=== PATIENT | female | born 1995 | race African-American/Black ===

== ENCOUNTER 2025-05-24 13:32 | Outpatient (AMB) | payer OTHER, SELFPAY ==
--- NOTE | 2025-05-24 13:52 | MHC.PC.OV ---
Vital Signs 05/24/25 14:09 Height 5 ft 6 in Weight 151 lb 4 oz BMI 24.4 BP 106/60 Blood Pressure Location Rt brachial Position Sitting Respiration 15 Pulse 97 Pulse Source Pulse Oximeter Temp 98.5 F Temp Source Temporal Artery Scan Pulse Oximetry (%) 99 Oxygen Delivery Method Room Air Intake Visit Reasons: CPE Intake Note: Mavis presents in the office today to establish care. Business Manager Required: No Allergies No Known Allergies Allergy (Verified 05/24/25 14:01) Tobacco use date assessed: 05/24/25 Dental Screening Dental Screen Date: 05/24/25 Did you have a dental visit in the last 12 months?: No Did you have a dental problem in the last 6 months where you did not have access to dental care?: No Was dental information given to patient?: Patient declined HPI HPI Comments History of Present Illness Details This is a 30-year-old female with a past medical history of autism spectrum disorder presenting to establish care. The patient does not recall who she last saw for primary care. 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 She is agreeable to having a physical exam today. Her only concern is that she noticed a lump on the right side of her neck a couple of days ago. She has no other symptoms associated with this and has been feeling well. She enjoys writing and reading. She went to [employer]. She lives with her mother. She was previously evaluated by a psychiatrist for autism. SURYA is positive, but she denies issues with anxiety and is not seeking treatment right now. Denies depression. She is overdue for eye and dental exams which I recommended. She also reports that she has never seen Gynecology for an initial exam so I have referred her to [facility]. She declines tetanus and influenza vaccines. Declines screening for STIs-denies being sexually active. ROS: Constitutional: No unexplained weight loss, fever, chills, fatigue or night sweats. Eyes: No vision changes, blurry vision, double vision, eye pain, eye redness, eye discharge. ENT: No hearing loss, sneezing, congestion, runny nose or sore throat. Respiratory: No shortness of breath, cough or sputum production. Cardiovascular: No chest pain, chest pressure or chest discomfort. No palpitations or pedal edema. Gastrointestinal: No anorexia, nausea, vomiting or diarrhea. No abdominal pain or blood in stool. Genitourinary: No dysuria, hematuria, urinary frequency. Neurologic: No headache, dizziness, syncope, unilateral weakness, ataxia, numbness or tingling in the extremities. Musculoskeletal: No muscle pain, back pain, joint pain or swelling. Hematologic/Lymphatics: No bleeding or bruising. Skin: No rash or itching. Endocrine: No cold or heat intolerance. No polyuria or polydipsia. Psychiatric: No SI/HI. see HPI. Physical exam: Constitutional: Alert, in no distress. Head: Normocephalic. Eyes: Pupils are equal, round and reactive to light. Extraocular muscles intact. Ear, Nose and Throat: Canals clear. TMs normal. Normal nasal mucosa. No nasal discharge. No oral lesions. Neck: Supple, Full range of motion. pea sized nontender mobile cervical lymph node on the right side. No palpable thyroid masses. Respiratory: Clear to auscultation. Cardiovascular: S1 S2 regular. No murmurs. . Gastrointestinal: Abdomen soft, non-tender, non-distended. Normal bowel sounds. No palpable masses. Neurologic: No focal neurological deficits. Symmetric patellar reflexes. Moves all extremities spontaneously. Skin: No rashes Musculoskeletal: No gross deformities. Normal range of motion. Extremities: Warm and well perfused. No clubbing, cyanosis or edema. Psychiatric: Wears headphones during the visit. Eye contact not always maintained during speaking. Speech is clear. [facility] Medical History (Updated 05/24/25 @ 15:20 by MOSES Li) Autism spectrum disorder Enlarged lymph node in neck Screening for cardiovascular condition Cold sore Routine physical examination Food poisoning Family History (Updated 05/24/25 @ 14:31 by MOSES Li) Father Diabetes Maternal Grandmother Diabetes Paternal Grandmother Substance abuse Alcoholism Maternal Aunt Lymphoma Social History (Updated 05/24/25 @ 14:08 by Anu Lopez CMA) Housing: House Alcohol intake: never Patient Tobacco Use Status: Never used Tobacco e-Cigarette/Vaping Use: Never Used Second Hand Smoke Exposure: No service: No Current occupational status: other Current occupational exposures/hazards: No Cognitive needs: No Hearing needs: No Vision needs: Yes Questionnaire PHQ-9 Over the last 2 weeks, how often have you been bothered by any of the following problems? 1. Little interest or pleasure in doing things: not at all 2. Feeling down, depressed, or hopeless: several days 3. Trouble falling or staying asleep, or sleeping too much: several days 4. Feeling tired or having little energy: not at all 5. Poor appetite or overeating: not at all 6. Feeling bad about yourself - or that you are a failure or have let yourself or your family down: not at all 7. Trouble concentrating on things, such as reading the newspaper or watching television: not at all 8. Moving or speaking so slowly that other people could have noticed. Or the opposite - being so fidgety or restless that you have been moving around a lot more than usual: not at all 9. Thoughts that you would be better off or of hurting yourself in some way: several days Total score: 3 Depression Screening Interpretation: Positive Depression Screening Done: Yes 89931 - PHQ-9 Billing: Yes Source: Developed by Drs. Yovanny Gonzalez, Slime Lopez, Seth Ellsworth and colleagues, with an educational hussain from [employer]. Thrive Questionnaire Date Thrive assessed: 05/24/25 I am a: Patient What is your living situation today?: I have a steady place to live Within the past 12 months, did the food you bought not last and you didn't have the money to get more?: Never true Within the past 12 months, did you worry whether your food would run out before you got money to buy more?: Never true Do you have trouble paying for medicines?: No Do you have trouble getting transportation to medical appointments?: Yes Do you have trouble paying your heating and electricity bill?: No Do you have trouble taking care of your child, family member or friend?: I choose not to answer this question Do you have trouble with day-to-day activities such as bathing, preparing meals, shopping, managing finances, etc.?: I choose not to answer this question Are you currently unemployed and looking for a job?: Yes Are you interested in more education?: Yes Please select the resources that you would like help with: None Currently or been in a relationship where the following occur: No concerns reported THRIVE Score: 1 AUDIT C Alcohol Use Questionnaire (AUDIT-C) 1. How often do you have a drink containing alcohol?: Never Total Score: 0 SURYA-7 AMB Questionnaire SURYA-7 Date SURYA - 7 assessed: 05/24/25 Feeling nervous, anxious, or on edge: 1 = Several days Not being able to stop or control worryin = Several days Worrying too much about different things: 3 = Nearly every day Trouble relaxin = Several days Being so restless that it is hard to sit still: 0 = Not at all Becoming easily annoyed or irritable: 1 = Several days Feeling afraid as if something awful might happen: 2 = More than half the days Total SURYA-7 score (0-4 normal; 5-9 mild; 10-14 moderate; 15-21 severe): 9 Source: Developed by Drs. Yovanny Gonzalez, Slime Lopez, Seth Ellsworth and colleagues, with an educational hussani from [employer]. SURYA-7 Assessment Billing SURYA-7 Assessment Tool: SURYA-7 Assessment 46310 Physical exam (Primary Care) Vital Signs: Last Vital Signs Temp 98.5 F 05/24/25 14:09 Pulse 97 05/24/25 14:09 Resp 15 05/24/25 14:09 BP 106/60 05/24/25 14:09 Pulse Ox 99 05/24/25 14:09 Oxygen Delivery Method Room Air 05/24/25 14:09 BMI result Body Mass Index 24.4 Tobacco/Smoking Status: Tobacco use Status Tobacco use date assessed 05/24/25 05/24/25 14:16 Patient Tobacco Use Status Never used Tobacco 05/24/25 14:16 e-Cigarette/Vaping Use Never Used 05/24/25 14:16 PHQ-9: PHQ-9 Score PHQ-9: Total score 3 05/24/25 14:16 Depression Screening Interpretation: Positive Thrive Assessment: Date of Thrive Assessment Date Thrive assessed 05/24/25 05/24/25 14:16 Currently or been in a relationship where the following occur: No concerns reported Coding Level of Care Code New Pt Level 3 (56682) New Pt Prev Care 18-39yr(74849 Diagnoses Routine physical examination Z00.00 Enlarged lymph node in neck R59.0 Autism spectrum disorder F84.0 Additional Codes SURYA-7 Assessment Billing - SURYA-7 Assessment Tool: SURYA-7 Assessment 10180 ([id number]) PHQ-9 - 93712 - PHQ-9 Billing: Yes ([id number]) Assessment & Plan Assessment & Plan (1) Routine physical examination: Code(s): Z00.00 - Encounter for general adult medical examination without abnormal findings Category: Medical (2) Enlarged lymph node in neck: Code(s): R59.0 - Localized enlarged lymph nodes Category: Medical (3) Autism spectrum disorder: Code(s): F84.0 - Autistic disorder Category: Medical Plan Patient is seen today for a routine physical. As part of this visit we reviewed the following issues, which are considered and essential part of preventative health in this age group: - Breast Cancer screening - Annual Pattern Chain Builder exam - Blood pressure screening - Cholesterol screening - Osteoporosis prevention including calcium/vitamin D intake, weight bearing exercise & smoking cessation - Nutritional and exercise counseling - Counseling of injury prevention including fire prevention, smoke alarms and seat belt usage - Screening for depression - Recommendations about immunizations - Recommendation of an eye exam - Screening for substance abuse Patient will have fasting lab work completed and have an ultrasound of the lymph node. She will schedule a follow up in 6 weeks for re-evaluation in to review test results. She will notify the office if she develops other symptoms. Orders: Orders Comprehensive Met. Panel Today B00.1 - Herpesviral vesicular dermatitis, Z00.00 - Encounter for general adult medical examination without abnormal findings, Z13.6 - Encounter for screening for cardiovascular disorders Lipid Panel Today B00.1 - Herpesviral vesicular dermatitis, Z00.00 - Encounter for general adult medical examination without abnormal findings, Z13.6 - Encounter for screening for cardiovascular disorders US soft tiss head and/or neck Today R59.0 - Localized enlarged lymph nodes TSH reflex Free T4 Today R59.0 - Localized enlarged lymph nodes Complete Blood Count Auto Diff Today R59.0 - Localized enlarged lymph nodes Erythrocyte Sedimentation Rate Today R59.0 - Localized enlarged lymph nodes Referrals LEARNING ANALYST Referral Z01.419 - Encounter for gynecological examination (general) (routine) without abnormal findings
[2025-05-24 14:09] VITALS: BP 106/60; PULSE 97; RESP 15; TEMP 36.9; O2SAT 99; BMI 24.4
--- OUTSIDE RECORDS SUMMARY | 2025-05-24 16:51 | XMS_ITS | Encounter Summary ---
Author Organization [facility] Address [address] [address] Phone Care Team Providers Care Registered Nurse Nursery Name Role Phone Pcp, Unknown Primary Care Provider Unavailabl e Encounter Details Date Type Department Care Team (Late st Contact Info) Description 06/14/2024 Procedure Pass [facility], Ct Scan - [address] [address] Social History Tobacco Use Types Packs/Day Years Used Date Smoking Tobacco: Never Assessed Education Answer Date Recorded Are you interested in more education? Not on cheo e 06/14/2024 Are you concerned about learning? Not on file 06/14/2024 No 06/14/2024 No 06/14/2024 Digital Access Answer Date Recorded No 06/14/2024 No 06/14/2024 Reliable internet access at home? Not on file 06/14/2024 Device with a working camera? Not on file Intimate Partner Violence Answer Date R ecorded Are you denied basic needs s uch as food, clothing, or medical care? No 06/14/2024 In the past 12 months have y ou been in a relationship with a person who hurts, threatens, or tries to control you? No 06/14/2024 Are you denied basic needs s uch as food, clothing, or medical care? No 06/14/2024 In the past 12 months have y ou been in a relationship with a person who hurts, threatens, or tries to control you? No 06/14/2024 Comments Unknown Sex and Gender Information Value Date Recorded Sex Assigned at Female 06/14/2024 9:00 AM EST Legal Sex Female 8:49 AM EST Gender Identity Female 06/14/2024 9:00 AM EST Sexual Orientation Don't know 06/14/2024 9: 16 AM EST documented as of this encounter Functional Status * Calculated C-SSRS Risk Score (Lifetime/Recent) Answer Date of Assessment Author No Risk Indicated 06/14/2024 8:58 AM Marissa Nuñez RN * [place] Suicide Severity Rating Scale (Screener/Recent Self-Report) Question Answer Date of Assessment Author 1. Wish to be (Past 1 Month) No 024 8:58 AM Marissa Nuñez RN 2. Non-Specific Active Suici corie Thoughts (Past 1 Month) No 06/14/2024 8:58 AM Marissa Nuñez RN 6. Suicidal Behavior (Lifetime) No 8:58 AM Marissa Nuñez RN documented as of this encounter Plan of Treatment Not on file documented as of this encounter Visit Diagnoses Not on filedocumented in this encounter Care Teams Registered Nurse Nursery Relationship Specialty Start Date End Date Pcp, Unknown PCP - General 06/14/24 documented as of this encounter Additional Source Comments The information contained in this document represents components of the legal health record. It is not the complete legal health record.[facility]
--- OUTSIDE RECORDS SUMMARY | 2025-05-24 16:51 | XMS_ITS | Clinical Summary ---
Author Organization [facility] Address [address] [place] [id number] Phone Care Team Providers Care Hotel And Dining Room Cashier Name Role Phone Pcp, Unknown Primary Care Provider Unavailabl e Allergies No known active allergies Medications No known medications Active Problems Problem Noted Date Diagnosed Date Auditory hallucinations 09/23/2024 Social History Tobacco Use Types Packs/Day Years [...] as food, clothing, or medical care? No 09/23/2024 In the past 12 months have y ou been in a relationship with a person who hurts, threatens, or tries to control you? No 09/23/2024 Are you denied basic needs s uch as food, clothing, or medical care? No 09/23/2024 In the past 12 months have y ou been in a relationship with a person who hurts, threatens, or tries to control you? No 09/23/2024 Comments Unknown Sex and Gender Information Value Date Recorded Sex Assigned at Female 06/14/2024 9:00 AM EST Legal Sex Female 8:49 AM EST Gender Identity Female 06/14/2024 9:00 AM EST Sexual Orientation Don't know 06/14/2024 9: 16 AM EST Last Filed Vital Signs Vital Sign Reading Time Taken Comments Blood Pressure 113/79 09/24/2024 11:05 AM EDT Pulse 78 09/24/2024 11:05 AM EDT Temperature 36.8 C (98.2 F) 09/24/2024 11:05 AM EDT Respiratory Rate 18 09/24/2024 11:05 AM EDT Oxygen Saturation 99% 09/24/2024 11:05 AM EDT Inhaled Oxygen Concentration - - Weight 76.7 kg (169 lb) 09/23/2024 12:44 PM EDT Height 167.6 cm (5' 6 ) 09/23/2024 12:44 PM EDT Body Mass Index 27.28 09/23/2024 12:44 PM EDT Plan of Treatment Health Maintenance Due Date Last Done Comments Adult Td,Tdap Booster 1997 DEPRESSION SCREENING 2009 SMOKING Hx and SMOKELESS TOB ACCO SCREENING 2010 HEPATITIS C SCREENING 2015 HIV ONE-TIME SCREENING (18-6 5 YEARS) 2015 PAP SMEAR 2018 INFLUENZA VACCINE (#1) 2025 COVID-19 VACCINE ( - 2024-2 6 season) 2025 HEPATITIS A VACCINES Aged Out No long er eligible based on patient's age to complete this topic HIB VACCINES Aged Out No longer eligi ble based on patient's age to complete this topic IPV VACCINES Aged Out No longer eligi ble based on patient's age to complete this topic MENINGOCOCCAL VACCINES (ACWY) Aged Out No longer eligible based on patient's age to complete this topic MENINGOCOCCAL VACCINES (B) Aged Out N o longer eligible based on patient's age to complete this topic PNEUMOCOCCAL VACCINES (0-49 years) Aged Out No longer eligible based on patient's age to complete this topic Medical Devices Not on file Insurance [facility] Care Teams Hotel And Dining Room Cashier Relationship Specialty Start Date End Date Pcp, Unknown PCP - General 06/14/24 Additional Source Comments The information contained in this document represents components of the legal health record. It is not the complete legal health record.[facility]
--- OUTSIDE RECORDS SUMMARY | 2025-05-24 16:51 | XMS_ITS | Encounter Summary ---
Author Organization [facility] Address [address] [address] Phone Care Team Providers Care Director Of Graduate Admissions Name Role Phone Pcp, Unknown Primary Care Provider Unavailabl e Encounter Details Date Type Department Care Team (Late st Contact Info) Description 09/23/2024 Procedure Pass [facility], Ct Scan - [address] [address] Social History Tobacco Use Types Packs/Day Years [...] Date of Assessment Author No Risk Indicated 09/23/2024 12:45 PM EDT Abdon Son RN * [place] Suicide Severity Rating Scale (Screener/Recent Self-Report) Question Answer Date of Assessment Author 1. Wish to be (Past 1 Month) No 09/23/2024 12:45 PM EDT Izzy Blanco RN 2. Non-Specific Active Suici corie Thoughts (Past 1 Month) No 09/23/2024 12:45 PM EDT Alma Blanco RN 6. Suicidal Behavior (Lifetime) No 12:45 PM EDT Abdon Blanco RN documented as of this encounter Plan of Treatment Not on file documented as of this encounter Visit Diagnoses Not on filedocumented in this encounter Care Teams Director Of Graduate Admissions Relationship Specialty Start Date End Date Pcp, Unknown PCP - General 06/14/24 documented as of this encounter Additional Source Comments The information contained in this document represents components of the legal health record. It is not the complete legal health record.[facility]
== END 2025-05-24 14:45 | disposition home or self-care (01) ==
LOC: HO.HMCFM 13:33
PROVIDERS: PCP Physician Assistant Medical; Visit Provider Physician Assistant Medical
DX: Z00.00 Encounter for general adult medical examination without abnormal findings (principal); F84.0 Autistic disorder; R59.0 Localized enlarged lymph nodes

== ENCOUNTER → 2025-05-24 13:32 | Outpatient (BNVA) | payer OTHER, SELFPAY | PROVIDERS: Visit Provider Physician Assistant Medical | DX: Z00.00 Encounter for general adult medical examination without abnormal findings (principal); R59.0 Localized enlarged lymph nodes; F84.0 Autistic disorder; Z13.31 Encounter for screening for depression; Z13.39 Encounter for screening examination for other mental health and behavioral disorders | CPT/HCPCS: 96127; 99385 ==